=== PATIENT | male | born 1995 | race American Indian/Alaskan Native ===

== ENCOUNTER 2019-02-23 20:18 | Emergency (ER) | payer SELFPAY ==
[2019-02-23 20:46] VITALS: BP 135/83
[2019-02-23] MEDS ORDERED: oxyCODONE /ACETAMINOPHEN 5-325MG TAB PO ONE (23:43)
[2019-02-23] MEDS ORDERED: ONDANSETRON 4 MG ODT TAB PO ONE (23:43)
[2019-02-23] MEDS ORDERED: IBUPROFEN 600 MG TAB PO ONE (23:43)
[2019-02-24 00:37] LABS: Hematocrit 28.7 % (35.5-45.6); Hemoglobin 9.4 gm/dl (11.8-15.2); Mean Corpuscular HGB Conc 33 % (32-34); Mean Corpuscular Volume 89 fl (84-94); Platelet Count 835 K/mm3 (140-440); Red Blood Count 3.23 M/mm3 (3.65-5.03); Red Cell Distribution Width 14.3 % (13.2-15.2)
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
[2019-02-24 00:51] LABS: Albumin 3.8 g/dL (3.9-5); BUN/Creatinine Ratio 17; Blood Urea Nitrogen 10 mg/dL (9-20); Calcium 9.3 mg/dL (8.4-10.2); Hemolysis Index 0
[2019-02-24 00:55] LABS: Alanine Aminotransferase 41 units/L (7-56)
[2019-02-24] MEDS ORDERED: SULFAMETHOXAZOLE/TRIMETHOPRIM 800/160MG DS TAB PO ONE (01:26)
[2019-02-24] MEDS ORDERED: CLINDAMYCIN 300 MG CAP PO ONE (01:26)
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
[2019-02-24 02:29] LABS: Basophils % (Manual) 0 % (0.0-1.8); Macrocytosis 1+; Total Cells Counted 100
[2019-02-24 02:30] LABS: Large Platelets 1+; Platelet Estimate Consistent w Auto; Stomatocytes Few
== END 2019-02-24 02:32 | disposition home or self-care (01) ==
LOC: ED 20:18
DX: S72.91XD Unspecified fracture of right femur, subsequent encounter for closed fracture with routine healing (principal); F17.200 Nicotine dependence, unspecified, uncomplicated; Y92.89 Other specified places as the place of occurrence of the external cause
CPT/HCPCS: 36415; 80053; 85007; 85025; 93005; 93010; Q0162